=== PATIENT | male | born 1950 | race Two or more races ===

== ENCOUNTER 2019-01-07 06:48 | Inpatient (IN) | payer MEDICARE ==
[~2019-01-07] VITALS: Ht 172.7 cm; Wt 99.3 kg
[2019-01-07] MEDS ORDERED: IV NS 0.9% 1,000 ML BAG IV ONE ×2 (07:00→08:00)
--- NOTE | 2019-01-07 07:03 | NUR ---
BIB RA FROM [facility]. PT UNCONSCIOUS. NO RESPONSE TO VERBAL STIMULI BUT RESPONDS TO PAINFUL STIMULI. BROUGHT IN D/T FOUND DESATTING AND UNCONSCIOUS AT [facility]. PER EMS REPORT PT WAS ON NON REBREATHER MASK AT 100% O2 SAT, PT DESAT TO 83% DURING TRANSFER W/O O2. BREATHING NOTED SHALLOW, RAPID AND GASPING AT TIMES. LUNG SOUND NOTED DIMINISHED BILATERAL. PT PRESENTED WITH IV ON L EJ WITH NS 1L RUNNING. BS REPORTED @ 109. RECTAL TEMP DONE @ 102.3. IV STARTED ON R HAND 18G. BLOOD DRAWN AND GIVEN TO LAB AT BEDSIDE. F/C INSERTED URINE COLLECTED AND SENT TO LAB. AT BEDSIDE FOR EVAL.
--- NOTE | 2019-01-07 07:14 | NUR ---
MADE AWARE OF BP 89/59. PT ON NS 1L RUNNING. NNO RECIEVED AT THIS TIME
[2019-01-07] MEDS ORDERED: ACETAMINOPHEN 650 MG/SUPP.RECT RC ONE ×2 (07:18→07:30)
[2019-01-07 07:23] LABS: SERUM AMMONIA 40 umol/L (11-32)
[2019-01-07 07:25] LABS: CALCIUM, SERUM 8.1 mg/dL (8.5-10.1); CARBON DIOXIDE 27 mmol/L (21-32); CHLORIDE 106 mmol/L (98-107); CREATININE 1.6 mg/dL (0.6-1.3); GLUCOSE 84 mg/dL (74-106); POTASSIUM 4.4 mmol/L (3.5-5.1); SODIUM SERUM 145 mmol/L (136-145); UREA NITROGEN, BLOOD 30 mg/dL (7-18)
[2019-01-07 07:28] LABS: ALANINE AMINOTRANSFERASE 25 U/L (12-78); ALBUMIN 1.7 g/dL (3.4-5.0); ALKALINE PHOSPHATASE 106 U/L (46-116); ASPARTATE AMINOTRANSFERASE 54 U/L (15-37); BILIRUBIN,DIRECT 0.5 mg/dL (0.0-0.2); BILIRUBIN,TOTAL 0.8 mg/dL (0.2-1.0)
--- NOTE | 2019-01-07 07:30 | NUR ---
REPORT RECEIVED FROM SARAH GAN FOR [facility]. PT IN BED, PALE, ON NON-REBREATHER MASK AT 15LPM, RESPIRATIONS LABORED, NON-RESPONSIVE TO VOICE, RESPONSIVE TO PAINFUL STIMULI, DPOA AT BEDSIDE, HOOKED TO CYANIDE POT TENDER, LOW BP NOTED, MD AWARE. WILL CONTINUE TO MONITOR.
[2019-01-07 07:35] LABS: APPEARANCE,URINE CLEAR (CLEAR); BILIRUBIN,URINE NEGATIVE (NEGATIVE); BLOOD, URINE NEGATIVE Ery/uL (NEGATIVE); COLOR,URINE YELLOW (YELLOW); KETONES,URINE NEGATIVE (NEGATIVE); LEUKOCYTE ESTERASE ,URINE NEGATIVE (NEGATIVE); NITRITE, URINE NEGATIVE (NEGATIVE); PROTEIN,URINE NEGATIVE (NEGATIVE); UGLUCOSE NEGATIVE (NEGATIVE)
[2019-01-07 07:49] LABS: BACTERIA,URINE Rare /HPF (None Seen); RBC,URINE 0-2 /HPF (0-2); SQUAMOUS EPITHELIAL CELL,UR Few /HPF (None Seen); WBC,URINE 0-2 /HPF (0-3)
[2019-01-07 07:57] LABS: BASOPHILS # (AUTO) 0.1 /CMM (0.0-0.2); BASOPHILS % (AUTO) 1.2 % (0.0-2.0); EOSINOPHILS % (AUTO) 0.1 % (0.0-6.0); LYMPHOCYTES # (AUTO) 0.5 /CMM (0.8-4.8); LYMPHOCYTES % (AUTO) 4.8 % (20.0-44.0); MEAN CORPUSCULAR HGB CONC 31 g/dl (31.0-36.0); MEAN CORPUSCULAR VOLUME 105 fL (80-96); MONOCYTES # (AUTO) 0.8 /CMM (0.1-1.30); MONOCYTES % (AUTO) 7.5 % (2.0-12.0); NEUTROPHILS # (AUTO) 8.9 /CMM (1.8-8.9); NEUTROPHILS % (AUTO) 86.4 % (43.0-81.0); PLATELET COUNT (AUTO) 233 /CMM (150-450); RED BLOOD CELL COUNT(AUTO) 1.12 MIL/uL (4.5-6.0); WHITE BLOOD COUNT (AUTO) 10.3 K/uL (4.3-11.0)
[2019-01-07 08:00] VITALS: BP 101/52
[2019-01-07 08:00] LABS: HEMATOCRIT 12 % (39-51); HEMOGLOBIN 3.6 g/dL (13.5-17.5)
[2019-01-07] MEDS ORDERED: PIPERACILLIN /TAZOBACTAM 3.375 G in IV D5W 50 ML IV ONE (08:00)
--- NOTE | 2019-01-07 08:03 | NUR ---
CALLED [facility]. ITS YVAN.
--- NOTE | 2019-01-07 08:08 | NUR ---
GOT ICU BED 253
--- NOTE | 2019-01-07 08:15 | NUR ---
PT WHEELED OUT VIA [facility] FOR CT SCAN
--- NOTE | 2019-01-07 08:23 | NUR ---
YVAN RIZVI NP CALLED BACK, SPOKE TO DR. MONROY. RECEIVED INSTRUCTION TO PAGE DR. MARINO FOR SURGERY ELECTRICAL TESTS SUPERVISOR.
[2019-01-07] MEDS ORDERED: METO25TA20 PO (08:30)
[2019-01-07] MEDS ORDERED: ACET-2605 PO (08:30)
[2019-01-07] MEDS ORDERED: LEVO500T75 PO (08:30)
[2019-01-07] MEDS ORDERED: NA P133E RC (08:30)
[2019-01-07] MEDS ORDERED: ACET-868 PO (08:30)
[2019-01-07] MEDS ORDERED: IPRA3AMP23 IH (08:30)
[2019-01-07] MEDS ORDERED: MULT-447 PO (08:30)
[2019-01-07] MEDS ORDERED: LACT10SO PO (08:30)
[2019-01-07] MEDS ORDERED: ASPI-1152 PO (08:30)
[2019-01-07] MEDS ORDERED: MAGN400O6 PO (08:30)
[2019-01-07] MEDS ORDERED: SENN-168 PO (08:30)
[2019-01-07] MEDS ORDERED: LISI-603 PO (08:30)
[2019-01-07] MEDS ORDERED: VITA1TAB56 PO (08:30)
--- NOTE | 2019-01-07 08:30 | NUR ---
REPORT GIVEN TO [facility] OF ICU
[2019-01-07 08:39] LABS: BAND % (MANUAL) 1 % (0.0-5.0); LYMPHOCYTES % (MANUAL) 3 % (16-48); MONOCYTES % (MANUAL) 9 % (0-11.0); NEUTROPHILS % (MANUAL) 87 (42-76)
--- NOTE | 2019-01-07 08:40 | NUR ---
DR VEE SPEAKING TO MAITE EVERETT
--- NOTE | 2019-01-07 08:52 | NUR ---
MAITE DISCUSSED TO PLACE PT ON HOSPICE CARE WITH HEALTH UNIT SUPERVISOR YVAN VEE. SIGNED REFUSAL OF BLOOD TRANSFUSION. MADE MERCHANDISING DIRECTOR VASILIY AWARE OF MED-SURG BED.
--- NOTE | 2019-01-07 09:52 | NUR ---
REPORT GIVEN TO [facility] MED-SURG AREA. ROOM 102
[2019-01-07 10:00] VITALS: BP 101/52
[2019-01-07] MEDS ORDERED: LORAZEPAM INJ 2 MG/ML VIAL IV PRN (10:00)
[2019-01-07] MEDS ORDERED: ONDANSETRON HCL/PF 4 MG/2 ML VIAL IVP PRN (10:00)
[2019-01-07] MEDS ORDERED: ACETAMINOPHEN 650 MG/SUPP.RECT RC PRN (10:00)
--- NOTE | 2019-01-07 10:00 | NUR ---
GATEHOUSE ATTENDANT NOTES RECEIVED REPORT FROM MALIK FRANCO. PATIENT CAME IN VIA GURNEY. PATIENT CHIEF COMPLAINT WAS AMS CAME FROM 4 SEASONS. NO HX PROVIDED BY DPOA. DPOA MARISA EVERETT AT BEDSIDE. TALKED TO YVAN RIZVI REGARDING POLST. PATIENT IS DNR/DNI. HAS A RIGHT HAND #18 AND EJ #18 INSERTED BY AMBULANCE PERSONNEL. HGB WAS 3.6 AND DPOA REFUSED TO HAVE BLOOD TRANSFUSION. WOUND PICTURES DONE IN CHART. HAS SACRAL AND LEFT HEEL REDNESS. BED LOCKED AN IN LOWEST POSITION. CALL LIGHT WITHIN REACH. WILL CONTINUE TO MONITOR
--- NOTE | 2019-01-07 10:30 | NUR ---
RN NOTES PATIENT STARTED ON MORPHINE DRIP.
[2019-01-07] MEDS ORDERED: KEY,NONCONTROL,TO KEEP IN PYXI 1 EA MC ONE ×2 (10:59→11:22)
[2019-01-07 16:00] VITALS: BP 84/55
--- NOTE | 2019-01-07 18:30 | NUR ---
RN CLOSING NOTES PATIENT IN BED, NON VERBAL. BREATHING EVEN AND NON LABORED. ON NON REBREATHER MASK. HAS BILATERAL LOWER EXTREMITIES +2. BM X1 BLACK STOOL. CRUZ CATH WITH CLEAR AND YELLOW URINE. REPOSITION PER PROTOCOL. MORPHINE DRIP RUNNING AT 2ML/HR ON RIGHT HAND #18. HAS LEFT EJ #18 SL. WEB UI DESIGNER AWARE THAT DPOA WANTS HOSPICE CARE. BED LOCKED AND IN LOWEST POSITION. WILL ENDORSE TO NOC SHIFT FOR [facility]
--- NOTE | 2019-01-07 19:27 | NUR ---
MS RN NOTES RECEIVED PT ON BED. OBTUNDED. ON NRB MASK 15LPM, COMFORTABLE , NO RESPIRATORY DISTRESS NOTED. IV ACCESS ON RHAND G18 MORPHINE DRIP RUNNING @ 2MG/HR. CRUZ CATH DRAINING YELLOW URINE. HEAD OF BED ELEVATED. SIDE RAILS UP. CALL LIGHT WITHIN REACH. BED ALARM ON. WILL CONT TO MONITOR PTS COMFORT.
[2019-01-07 20:00] VITALS: BP 86/53
--- NOTE | 2019-01-07 21:20 | NUR ---
MS RN NOTES DPOA INFORMED REGARDING PTS CONDITION.
--- NOTE | 2019-01-08 06:52 | NUR ---
MS RN NOTES PROVIDED COMFORT THROUGHOUT THE SHIFT. MORPHINE DRIP @ 2MG.HR. NO RESPIRATORY DISTRESS NOTED. WILL ENDORSE TO THE AM NURSE FOR CONTINUITY OF CARE.
[2019-01-08 08:00] VITALS: BP 79/36
--- NOTE | 2019-01-08 09:30 | NUR ---
MS NURSE,patient currently morphine 2ml/hr DNR status, non responsive unable to take vital signs, shows pulseless no electrical activity noted Pnounced at this time SUPERVISOR METER SHOP tiny Kumar and housekeeping associate notified and one Legacy case # [id number] Power attекатерина Wright also notified as well
[2019-01-08] MEDS ORDERED: KEY,NONCONTROL,TO KEEP IN PYXI 1 EA MC ONE (09:42)
--- NOTE | 2019-01-08 10:00 | NUR ---
MS NURSE, Post mortem care given at this time
--- NOTE | 2019-01-08 11:45 | NUR ---
MS nurse. body sent to [facility] [place] at this time
== END 2019-01-08 09:30 | disposition expired | DRG 871 ==
LOC: ER 06:51 → ICU 08:29 → MEDSG1 09:32
PROVIDERS: ADMIT Nurse Practitioner Acute Care; ATTEND Nurse Practitioner Acute Care
DX: A41.9 Sepsis, unspecified organism (principal); R65.21 Severe sepsis with septic shock; G93.41 Metabolic encephalopathy; K63.1 Perforation of intestine (nontraumatic); J18.9 Pneumonia, unspecified organism; I21.A1 Myocardial infarction type 2; N17.0 Acute kidney failure with tubular necrosis; E43 Unspecified severe protein-calorie malnutrition; E87.2 Acidosis; J90 Pleural effusion, not elsewhere classified; Z66 Do not resuscitate; Z51.5 Encounter for palliative care; Z79.82 Long term (current) use of aspirin; Z79.899 Other long term (current) drug therapy; K72.90 Hepatic failure, unspecified without coma; I48.2 Chronic atrial fibrillation; D53.9 Nutritional anemia, unspecified; I25.10 Atherosclerotic heart disease of native coronary artery without angina pectoris; K70.31 Alcoholic cirrhosis of liver with ascites; Z87.442 Personal history of urinary calculi; K40.90 Unilateral inguinal hernia, without obstruction or gangrene, not specified as recurrent; I11.0 Hypertensive heart disease with heart failure; I50.9 Heart failure, unspecified; K66.8 Other specified disorders of peritoneum; N20.0 Calculus of kidney
CPT/HCPCS: 36415; 71045-TC; 80048-TC; 80076-TC; 81000-TC; 82140-TC; 83605-TC; 84484-TC; 85025-TC; 85730-TC; 86850-TC; 86921-TC; 87040-TC; 87081-TC; 87086-TC; G0378; J2274; J2543; J7030; J7050; J7060